=== PATIENT | male | born 1960 | race Caucasian/White ===

== ENCOUNTER 2018-04-05 18:22 | Emergency (ER) | payer SELFPAY ==
--- NOTE | 2018-04-05 18:53 | ED Physician Chart ---
ED Chief Complaint/HPI - Patient Information Date Seen:: 04/05/18 Time Seen:: 18:47 Chief Complaint:: etoh fall lt knee pain History of Present Illness:: 57 yr old male intoxicated with fall on lt knee with lt knee pain moderate stating he had a knee blow out Allergies:: Allergies Allergy/AdvReac Type Severity Reaction Status Date / Time No Known Allergies Allergy Verified 04/05/18 18:35 Vitals:: Vital Signs - 8 hr 04/05/18 18:30 Temp 98.6 F HR 106 RR 14 BP 118/74 O2 Sat % 94 ED Review of Systems - Review of Systems General/Constitutional: No fever, No chills, No weight loss, No weakness, No diaphoresis, No edema, No loss of appetite Skin: No skin lesions, No rash, No bruising Head: No headache, No light-headedness Eyes: No loss of vision, No pain, No diplopia ENT: No earache, No nasal drainage, No sore throat, No tinnitus Neck: No neck pain, No swelling, No thyromegaly, No stiffness, No mass noted Cardio Vascular: No chest pain, No palpitations, No PND, No orthopnea, No edema Pulmonary: No SOB, No cough, No sputum, No wheezing GI: No nausea, No vomiting, No diarrhea, No pain, No melena, No hematochezia, No constipation, No hematemesis G/U: No dysuria, No frequency, No hematuria Musculoskeletal: Bone or joint pain Endocrine: No polyuria, No polydipsia Psychiatric: No prior psych history, No depression, No anxiety, No suicidal ideation Hematopoietic: No bruising, No lymphadenopathy Allergic/Immuno: No urticaria, No angioedema Neurological: No syncope, No focal symptoms, No weakness, No paresthesia, No headache, No seizure, No dizziness, No confusion, No vertigo ED Past Medical History - Past Medical History Past Medical History: No significant medical hx ED Physical Exam - Physical Examination General/Constitutional: Awake, Well-developed, well-nourished, Alert, No distress, GCS 15, Non-toxic appearing, Ambulatory Head: Atraumatic Eyes: Lids, conjuctiva normal, PERRL, EOMI Skin: Nl inspection, No rash, No skin lesions, No ecchymosis, Well hydrated, No lymphadenopathy ENMT: External ears, nose nl, Nasal exam nl, Lips, teeth, gums nl Neck: Nontender, Full ROM w/o pain, No JVD, No nuchal rigidity, No bruit, No mass, No stridor Respiratory: Nl effort/Exclusion, Clear to Auscultation, No Wheeze/Rhonchi/Rales Cardio Vascular: RRR, No murmur, gallop, rubs, NL S1 S2 GI: No tenderness/rebounding/guarding, No organomegaly, No hernia, Normal BS's, Nondistended, No mass/bruits, No McBurney tenderness : No CVA tenderness Extremities: No tenderness or effusion, Full ROM, normal strength in all extremities, No edema, Normal digits & nails Other Extremities comments:: mild lt knee tend no effusion or hemarthrosis Neuro/Psych: Alert/oriented, DTR's symmetric, Normal sensory exam, Normal motor strength, Judgement/insight normal, Mood normal, Normal gait, No focal deficits Misc: Normal back, No paraspinal tenderness ED Assessment - Assessment General Assessment: fall sprain lt knee etoh ED Septic Shock - . Is Septic Shock (SBP<90, OR Lactate>4 mmol\L) present?: No - <6hrs of presentation: Vital Signs: Vital Signs - 8 hr 04/05/18 18:30 Temp 98.6 F HR 106 RR 14 BP 118/74 O2 Sat % 94 ED Reassessment (Disposition) - Diagnosis Diagnosis:: lt knee sprain
--- NOTE | 2018-04-06 08:54 | Diagnostic Imaging Report ---
Left knee (3 views) HISTORY: Pain No acute bony abnormalities. No fractures. Somewhat mottled appearance of the bones. Extensive vascular calcification noted (does the patient have a history of diabetes?). IMPRESSION: 1. No acute bony abnormalities 2. Extensive vascular calcification (does the patient have a history of diabetes?).
--- NOTE | 2018-04-06 09:03 | Diagnostic Imaging Report ---
Left elbow (3 views) HISTORY: Pain, trauma No acute bony abnormalities. No fractures. Joint spaces appear normal. No radiographic evidence of a joint effusion. IMPRESSION: No acute bony abnormalities
== END 2018-04-05 20:00 | disposition home or self-care (01) ==
LOC: ER 18:22
DX: S83.92XA Sprain of unspecified site of left knee, initial encounter (principal); F10.129 Alcohol abuse with intoxication, unspecified; W19.XXXA Unspecified fall, initial encounter; Y93.89 Activity, other specified; Y92.89 Other specified places as the place of occurrence of the external cause; Y99.8 Other external cause status
CPT/HCPCS: 73080-TC-LT; 73560-TC-LT; Z7502